=== PATIENT | female | born 1960 | race African-American/Black ===

== ENCOUNTER 2022-06-15 13:25 | Emergency (ER) | payer OTHER ==
[~2022-06-15] VITALS: Ht 157.5 cm; Wt 90.9 kg
[~2022-06-15 13:25] MED LIST: AMLO-258 PO; HYDR-4723 PO; HYDR-4870 PO
[2022-06-15 13:33] VITALS: BP 139/82
[2022-06-15] MEDS ORDERED: IBUPROFEN 600 MG TABLET PO ONE (14:30)
[2022-06-15] MEDS ORDERED: ACETAMINOPHEN/CODEINE 300-30 MG TABLET PO ONE (14:30)
[2022-06-15] MEDS ORDERED: IBUP-1554 PO (14:36)
[2022-06-15] MEDS ORDERED: ACET-2080 PO (14:36)
== END 2022-06-15 15:02 | disposition home or self-care (01) ==
LOC: EMS 13:36
DX: T21.22XA Burn of second degree of abdominal wall, initial encounter (principal); T22.212A Burn of second degree of left forearm, initial encounter; T31.0 Burns involving less than 10% of body surface; I10 Essential (primary) hypertension; Z90.710 Acquired absence of both cervix and uterus; Z98.890 Other specified postprocedural states; Z88.0 Allergy status to penicillin
CPT/HCPCS: 99283

== ENCOUNTER 2022-12-31 10:49 | Emergency (ER) | payer MEDICARE, OTHER ==
[~2022-12-31] VITALS: Ht 157.5 cm; Wt 103.0 kg
[~2022-12-31 10:49] MED LIST changes: +ACET-2080 PO; -HYDR-4870 PO; +HYDR25TA2 PO; +IBUP-1554 PO
[2022-12-31 10:54] VITALS: TEMP 98.3
[2022-12-31 11:52] VITALS: BP 116/70; PULSE 100; RESP 16
[2022-12-31] MEDS ORDERED: METH-812 PO (12:44)
[2022-12-31] MEDS ORDERED: GABA800T9 PO (12:44)
[2022-12-31] MEDS ORDERED: OXYC-618 PO (12:44)
[2022-12-31] MEDS ORDERED: MELO-108 PO (12:44)
[2022-12-31] MEDS ORDERED: NALO4SPR NASAL (12:44)
[2022-12-31] MEDS ORDERED: KETOROLAC TROMETHAMINE 60 MG/2 ML VIAL IM ONE (12:45)
[2022-12-31] MEDS ORDERED: IBUP-1492 PO ×2 (13:42→14:07)
== END 2022-12-31 14:11 | disposition home or self-care (01) ==
LOC: EMS 10:54
DX: M25.561 Pain in right knee (principal); I10 Essential (primary) hypertension; Z90.710 Acquired absence of both cervix and uterus; Z98.890 Other specified postprocedural states
CPT/HCPCS: 99283; 73562; 96372; J1885

== ENCOUNTER 2023-06-23 13:31 | Emergency (ER) | payer MEDICARE, OTHER ==
[~2023-06-23] VITALS: Ht 157.5 cm; Wt 90.9 kg
[~2023-06-23 13:31] MED LIST changes: -ACET-2080 PO; +GABA800T9 PO; -HYDR-4723 PO; +IBUP-1492 PO; -IBUP-1554 PO; +MELO-108 PO; +METH-812 PO; +NALO4SPR NASAL; +OXYC-618 PO
[2023-06-23 13:34] VITALS: BP 136/78; PULSE 102; RESP 16; TEMP 98.4
== END 2023-06-23 13:50 | disposition left against medical advice (07) ==
LOC: EMS 13:32
DX: I10 Essential (primary) hypertension (principal); M25.512 Pain in left shoulder; Z53.21 Procedure and treatment not carried out due to patient leaving prior to being seen by health care provider

== ENCOUNTER 2023-09-25 16:36 | Emergency (ER) | payer MEDICARE, OTHER ==
[~2023-09-25] VITALS: Ht 157.5 cm; Wt 90.9 kg
[2023-09-25 16:41] VITALS: TEMP 98.8
[2023-09-25 17:12] LABS: COVID AG,FIA SOURCE NASAL SWAB
[2023-09-25 17:41] LABS: RAPID GROUP A STREP NEGATIVE (NEGATIVE)
[2023-09-25 17:44] LABS: SARS-COV2 (COVID) ANTIGEN,FIA Negative (Negative)
[2023-09-25 17:46] LABS: INFLUENZA TYPE A NEGATIVE FOR TYPE A (NEGATIVE); INFLUENZA TYPE B NEGATIVE FOR TYPE B (NEGATIVE)
[2023-09-25 18:16] LABS: APPEARANCE,URINE HAZY (CLEAR); BILIRUBIN,URINE NEGATIVE (NEGATIVE); COLOR,URINE YELLOW (YELLOW); GLUCOSE, URINE (UA) NEGATIVE (NEGATIVE); KETONES,URINE TRACE mg/dL (NEGATIVE); LEUKOCYTE ESTERASE ,URINE NEGATIVE (NEGATIVE); NITRATE,URINE NEGATIVE (NEGATIVE); OCCULT BLOOD,URINE TRACE (NEGATIVE); PROTEIN,URINE TRACE mg/dL (NEGATIVE); SPECIFIC GRAVITIY, URINE 1.022 (1.003-1.030); UROBILINOGEN,URINE <=1.0 mg/dL (<=1.0)
[2023-09-25 18:26] LABS: BACTERIA,URINE Few /HPF (None Seen); RBC,URINE 0-2 /HPF (0-2); SQUAMOUS EPITHELIAL CELL,UR Moderate /LPF (None Seen); WBC,URINE None Seen /HPF (0-5)
[2023-09-25 18:31] LABS: BASOPHILS % (AUTO) 0.5 % (0.0-2.0); EOSINOPHILS % (AUTO) 0.5 % (1.0-6.0); HEMATOCRIT 41.4 % (36-46); HEMOGLOBIN 13.7 g/dL (12.0-16.0); LYMPHOCYTES # (AUTO) 1.6 K/uL (1.0-4.8); LYMPHOCYTES % (AUTO) 30.4 % (22.0-44.0); MEAN CORPUSCULAR HEMOGLOBIN 33.5 pg (26.0-34.0); MEAN CORPUSCULAR VOLUME 101 fL (80-100); MONOCYTES # (AUTO) 0.5 K/uL (0.1-1.0); MONOCYTES % (AUTO) 9.1 % (2.0-9.0); NEUTROPHILS # (AUTO) 3.1 K/uL (1.8-7.7); NEUTROPHILS % (AUTO) 59.5 % (40.0-70.0); PLATELET COUNT (AUTO) 169 K/uL (150-450); RED BLOOD CELL COUNT(AUTO) 4.08 MIL/uL (4.00-5.20); RED CELL DISTRIBUTION WIDTH 14.7 % (11.5-14.5); WHITE BLOOD COUNT (AUTO) 5.1 K/uL (4.5-11.0)
[2023-09-25 18:35] LABS: ANION GAP 16 mmol/L (8-16); CALCIUM, TOTAL 8.7 mg/dL (8.8-10.5); CARBON DIOXIDE 25 mmol/L (22-29); CHLORIDE 103 mmol/L (98-107); CREATININE 0.83 mg/dL (0.60-1.30); GLOMERULAR FILTR. RATE CALC > 60 mL/min (>60); GLUCOSE,RANDOM 107 mg/dL (70-110); POTASSIUM 3.2 mmol/L (3.5-5.1); SODIUM SERUM 144 mmol/L (136-145); UREA NITROGEN, BLOOD 14 mg/dL (7-18)
[2023-09-25 18:40] LABS: ALANINE AMINOTRANSFERASE 49 U/L (12-78); ALBUMIN 3.7 g/dL (3.4-5.0); ALKALINE PHOSPHATASE 88 U/L (46-116); ASPARTATE AMINOTRANSFERASE 72 U/L (15-37); BILIRUBIN,TOTAL 0.6 mg/dL (0.1-1.0); TOTAL PROTEIN, SERUM 8.4 g/dL (6.4-8.2)
[2023-09-25 19:31] VITALS: BP 111/69; PULSE 99; RESP 16
[2023-09-25] MEDS ORDERED: AZIT-167 PO (19:32)
[2023-09-25] MEDS ORDERED: IBUP-1506 PO (19:32)
== END 2023-09-25 19:32 | disposition home or self-care (01) ==
LOC: EMS 16:38
DX: J02.9 Acute pharyngitis, unspecified (principal); I10 Essential (primary) hypertension; Z90.710 Acquired absence of both cervix and uterus; Z98.890 Other specified postprocedural states; Z88.0 Allergy status to penicillin; Z20.822 Contact with and (suspected) exposure to COVID-19
CPT/HCPCS: 80053; 81001; 85025; 87430; 87804; 99283

== ENCOUNTER 2023-12-19 14:23 | Emergency (ER) | payer MEDICARE, OTHER ==
[~2023-12-19] VITALS: Ht 157.5 cm; Wt 100.0 kg
[~2023-12-19 14:23] MED LIST changes: +AZIT-167 PO; +GABA-1554 PO; -GABA800T9 PO; +IBUP-1506 PO
[2023-12-19 14:36] VITALS: BP 116/69; PULSE 84; RESP 18; TEMP 98.7; O2SAT 99
[2023-12-19] MEDS ORDERED: DICL100G60 TP (14:40)
[2023-12-19] MEDS: LIDOCAINE 5% TRANSDERMAL PATCH TD ONE (15:48)
[2023-12-19] MEDS: KETOROLAC TROMETHAMINE 30 MG/ML VIAL IM ONE (15:48)
[2023-12-19] MEDS ORDERED: IBUP-1492 PO (16:05)
[2023-12-19] MEDS ORDERED: CYCL-448 PO (16:05)
== END 2023-12-19 16:31 | disposition home or self-care (01) ==
LOC: EMS 14:23
DX: M54.41 Lumbago with sciatica, right side (principal); G62.9 Polyneuropathy, unspecified; I10 Essential (primary) hypertension; Z90.710 Acquired absence of both cervix and uterus; Z88.0 Allergy status to penicillin; Z98.890 Other specified postprocedural states
CPT/HCPCS: 99283; 96372; J1885

== ENCOUNTER 2024-01-21 18:30 | Inpatient (IN) | payer MEDICARE, OTHER ==
[~2024-01-21] VITALS: Ht 162.6 cm; Wt 100.0 kg
[~2024-01-21 18:30] MED LIST changes: -AZIT-167 PO; +CYCL-448 PO; +DICL100G60 TP; -IBUP-1506 PO; -MELO-108 PO; -METH-812 PO; -NALO4SPR NASAL
[2024-01-21 18:53] LABS: COVID AG,FIA SOURCE NASAL SWAB
[2024-01-21 19:15] LABS: BASOPHILS % (AUTO) 0.4 % (0.0-2.0); EOSINOPHILS % (AUTO) 0.9 % (1.0-6.0); HEMATOCRIT 36.9 % (36-46); HEMOGLOBIN 11.9 g/dL (12.0-16.0); LYMPHOCYTES # (AUTO) 1.6 K/uL (1.0-4.8); LYMPHOCYTES % (AUTO) 24.7 % (22.0-44.0); MEAN CORPUSCULAR HGB CONC 32.3 G/dL (31.0-37.0); MEAN CORPUSCULAR VOLUME 99 fL (80-100); MONOCYTES # (AUTO) 0.5 K/uL (0.1-1.0); MONOCYTES % (AUTO) 8.1 % (2.0-9.0); NEUTROPHILS # (AUTO) 4.2 K/uL (1.8-7.7); NEUTROPHILS % (AUTO) 65.9 % (40.0-70.0); PLATELET COUNT (AUTO) 139 K/uL (150-450); RED BLOOD CELL COUNT(AUTO) 3.72 MIL/uL (4.00-5.20); RED CELL DISTRIBUTION WIDTH 15.4 % (11.5-14.5); WHITE BLOOD COUNT (AUTO) 6.4 K/uL (4.5-11.0)
[2024-01-21 19:21] LABS: SARS-COV2 (COVID) ANTIGEN,FIA Negative (Negative)
[2024-01-21 19:22] LABS: INFLUENZA TYPE A NEGATIVE FOR TYPE A (NEGATIVE); INFLUENZA TYPE B NEGATIVE FOR TYPE B (NEGATIVE)
[2024-01-21 19:33] LABS: TROPONIN I-HIGH SENSITIVITY 19 ng/L (<51)
[2024-01-21 19:35] LABS: B-TYPE NATRIURETIC PEPTIDE 46 pg/mL (0-100)
[2024-01-21 19:36] LABS: ANION GAP 14 mmol/L (8-16); CALCIUM, TOTAL 8.9 mg/dL (8.8-10.5); CARBON DIOXIDE 22 mmol/L (22-29); CHLORIDE 102 mmol/L (98-107); CREATININE 1.08 mg/dL (0.60-1.30); GLOMERULAR FILTR. RATE CALC > 60 mL/min (>60); GLUCOSE,RANDOM 117 mg/dL (70-110); SODIUM SERUM 138 mmol/L (136-145); UREA NITROGEN, BLOOD 33 mg/dL (7-18)
[2024-01-21 20:03] LABS: ALANINE AMINOTRANSFERASE 61 U/L (12-78); ALBUMIN 3.8 g/dL (3.4-5.0); ALKALINE PHOSPHATASE 106 U/L (46-116); ASPARTATE AMINOTRANSFERASE 85 U/L (15-37); BILIRUBIN,TOTAL 0.7 mg/dL (0.1-1.0); CREATINE KINASE, TOTAL ONLY 378 U/L (26-192); TOTAL PROTEIN, SERUM 8.1 g/dL (6.4-8.2)
[2024-01-21] MEDS ORDERED: LATA2.5D14 OU (20:06)
[2024-01-21] MEDS: MORPHINE SULFATE 2 MG/ML SYRINGE IVP ONE (20:07)
[2024-01-21] MEDS: POTASSIUM CHLORIDE 20 MEQ ER TABLET PO ONE (20:07)
[2024-01-21] MEDS ORDERED: POTASSIUM CHL 10 MEQ/WATER 50 ML IV PRN (21:15)
[2024-01-21] MEDS ORDERED: BISACODYL 10 MG RECTAL RECTAL SUPPOSITORY PR PRN (21:15)
[2024-01-21] MEDS ORDERED: ACETAMINOPHEN 325 MG TABLET PO PRN (21:15)
[2024-01-21] MEDS ORDERED: MAGNESIUM HYDROXIDE SUSPENSION 30 ML UDCUP PO PRN (21:15)
[2024-01-21] MEDS ORDERED: ONDANSETRON HCL 4 MG/2 ML VIAL IVP PRN (21:15)
[2024-01-21 21:54] LABS: APPEARANCE,URINE CLEAR (CLEAR); BILIRUBIN,URINE NEGATIVE (NEGATIVE); COLOR,URINE LIGHT YELLOW (YELLOW); GLUCOSE, URINE (UA) NEGATIVE (NEGATIVE); KETONES,URINE NEGATIVE (NEGATIVE); LEUKOCYTE ESTERASE ,URINE NEGATIVE (NEGATIVE); NITRATE,URINE NEGATIVE (NEGATIVE); OCCULT BLOOD,URINE SMALL (NEGATIVE); PH,URINE 5.5 (5.0-8.0); PROTEIN,URINE NEGATIVE (NEGATIVE); SPECIFIC GRAVITIY, URINE 1.014 (1.003-1.030); UROBILINOGEN,URINE <=1.0 mg/dL (<=1.0)
[2024-01-21 22:02] LABS: ALCOHOL, URINE DRUG SCREEN NEGATIVE (NEGATIVE); AMPHET/METH SCREEN,URINE NEGATIVE (NEGATIVE); BARBITURATE SCREEN, URINE NEGATIVE (NEGATIVE); BENZODIAZEPINES SCREEN,URINE NEGATIVE (NEGATIVE); CANNABINOID SCREEN,URINE NEGATIVE (NEGATIVE); COCAINE SCREEN,URINE NEGATIVE (NEGATIVE); METHADONE SCREEN, URINE NEGATIVE (NEGATIVE); OPIATE SCREEN,URINE POSITIVE (NEGATIVE); PHENCYCLIDINE SCREEN,URINE NEGATIVE (NEGATIVE)
[2024-01-21 22:06] LABS: PH,URINE DRUG SCREEN 5.5 (5.0-8.0)
[2024-01-21 22:14] LABS: BACTERIA,URINE Few /HPF (None Seen); SQUAMOUS EPITHELIAL CELL,UR Moderate /LPF (None Seen)
[2024-01-21 23:00] VITALS: BP 117/74; PULSE 108; RESP 18; O2SAT 93
[2024-01-22] MEDS: HEPARIN SODIUM,PORCINE 5,000 UNITS/ML VIAL SQ SCH
[2024-01-22] MEDS: HYDROCODONE/ACETAMINOPHEN 5-325 MG TABLET PO PRN (01:35)
[2024-01-22 04:00] VITALS: BP 134/66; PULSE 97; RESP 18; O2SAT 95
[2024-01-22 07:08] LABS: BASOPHILS % (AUTO) 0.5 % (0.0-2.0); EOSINOPHILS % (AUTO) 1.6 % (1.0-6.0); HEMATOCRIT 33.1 % (36-46); HEMOGLOBIN 11.1 g/dL (12.0-16.0); LYMPHOCYTES # (AUTO) 1.2 K/uL (1.0-4.8); LYMPHOCYTES % (AUTO) 25.1 % (22.0-44.0); MEAN CORPUSCULAR HEMOGLOBIN 33.1 pg (26.0-34.0); MEAN CORPUSCULAR HGB CONC 33.4 G/dL (31.0-37.0); MEAN CORPUSCULAR VOLUME 99 fL (80-100); MONOCYTES # (AUTO) 0.5 K/uL (0.1-1.0); MONOCYTES % (AUTO) 11.1 % (2.0-9.0); NEUTROPHILS % (AUTO) 61.7 % (40.0-70.0); PLATELET COUNT (AUTO) 132 K/uL (150-450); RED BLOOD CELL COUNT(AUTO) 3.34 MIL/uL (4.00-5.20); RED CELL DISTRIBUTION WIDTH 15.4 % (11.5-14.5); WHITE BLOOD COUNT (AUTO) 4.9 K/uL (4.5-11.0)
[2024-01-22 07:09] LABS: ANION GAP 11 mmol/L (8-16); CALCIUM, TOTAL 8.5 mg/dL (8.8-10.5); CARBON DIOXIDE 25 mmol/L (22-29); CHLORIDE 103 mmol/L (98-107); CREATININE 0.92 mg/dL (0.60-1.30); GLOMERULAR FILTR. RATE CALC > 60 mL/min (>60); GLUCOSE,RANDOM 123 mg/dL (70-110); POTASSIUM 3.6 mmol/L (3.5-5.1); SODIUM SERUM 139 mmol/L (136-145); UREA NITROGEN, BLOOD 33 mg/dL (7-18)
[2024-01-22 07:30] VITALS: BP 136/79; PULSE 94; RESP 18; TEMP 98; O2SAT 95
[2024-01-22] MEDS: AmLODIPine BESYLATE 10 MG TABLET PO SCH (08:20)
[2024-01-22] MEDS: HYDROCHLOROTHIAZIDE 25 MG TABLET PO SCH (08:22)
[2024-01-22] MEDS: PANTOPRAZOLE SODIUM 40 MG DR TABLET PO SCH (08:22)
[2024-01-22] MEDS: MORPHINE SULFATE 2 MG/ML SYRINGE IVP PRN (08:22)
[2024-01-22] MEDS: DOCUSATE SODIUM 100 MG CAPSULE PO SCH (08:22)
[2024-01-22 12:03] VITALS: BP 142/88; PULSE 103; RESP 18; TEMP 98; O2SAT 96
[2024-01-22 15:08] VITALS: BP 131/78; PULSE 106; RESP 20; TEMP 98.1; O2SAT 95
[2024-01-22] MEDS: FUROSEMIDE 20 MG/2 ML VIAL IVP SCH (16:15)
[2024-01-22] MEDS: LATANOPROST 0.005% 2.5 ML OPHTHALMIC SOLUTION OU SCH (20:11)
[2024-01-22] MEDS: ZOLPIDEM TARTRATE 5 MG TABLET PO PRN (20:11)
[2024-01-22 20:23] VITALS: BP 144/82; PULSE 106; RESP 20; TEMP 98.7; O2SAT 98
[2024-01-22 23:27] VITALS: BP 142/91; PULSE 108; RESP 20; TEMP 98.7; O2SAT 98
[2024-01-23 05:21] VITALS: BP 133/83; PULSE 104; RESP 20; TEMP 99.3; O2SAT 98
[2024-01-23 06:43] LABS: BASOPHILS % (AUTO) 0.3 % (0.0-2.0); HEMATOCRIT 35.5 % (36-46); HEMOGLOBIN 11.7 g/dL (12.0-16.0); LYMPHOCYTES # (AUTO) 1.1 K/uL (1.0-4.8); MEAN CORPUSCULAR HEMOGLOBIN 32.6 pg (26.0-34.0); MEAN CORPUSCULAR HGB CONC 32.9 G/dL (31.0-37.0); MEAN CORPUSCULAR VOLUME 99 fL (80-100); MONOCYTES # (AUTO) 0.4 K/uL (0.1-1.0); MONOCYTES % (AUTO) 11.1 % (2.0-9.0); NEUTROPHILS # (AUTO) 2.1 K/uL (1.8-7.7); NEUTROPHILS % (AUTO) 58.6 % (40.0-70.0); PLATELET COUNT (AUTO) 131 K/uL (150-450); RED BLOOD CELL COUNT(AUTO) 3.58 MIL/uL (4.00-5.20); RED CELL DISTRIBUTION WIDTH 15.7 % (11.5-14.5); WHITE BLOOD COUNT (AUTO) 3.6 K/uL (4.5-11.0)
[2024-01-23 07:11] LABS: ANION GAP 6 mmol/L (8-16); CALCIUM, TOTAL 8.9 mg/dL (8.8-10.5); CARBON DIOXIDE 30 mmol/L (22-29); CHLORIDE 103 mmol/L (98-107); CREATININE 0.66 mg/dL (0.60-1.30); GLOMERULAR FILTR. RATE CALC > 60 mL/min (>60); GLUCOSE,RANDOM 134 mg/dL (70-110); POTASSIUM 3.2 mmol/L (3.5-5.1); SODIUM SERUM 139 mmol/L (136-145); UREA NITROGEN, BLOOD 16 mg/dL (7-18)
[2024-01-23 07:14] LABS: TROPONIN I-HIGH SENSITIVITY 22 ng/L (<51)
[2024-01-23 07:51] VITALS: BP 120/69; PULSE 90; RESP 18; TEMP 98; O2SAT 97
[2024-01-23] MEDS: POTASSIUM CHLORIDE 20 MEQ ER TABLET PO PRN (08:36)
[2024-01-23] MEDS ORDERED: LOSA-382 PO (10:46)
[2024-01-24] MEDS ORDERED: FUROSEMIDE 20 MG TABLET PO SCH (09:00)
== END 2024-01-23 11:05 | disposition home or self-care (01) | DRG 291 ==
LOC: EMS 18:30 → EDH 21:09 → 5N 22:20
PROVIDERS: ADMIT Internal Medicine; ATTEND Internal Medicine
DX: I11.0 Hypertensive heart disease with heart failure (principal); I50.33 Acute on chronic diastolic (congestive) heart failure; E87.6 Hypokalemia; D64.9 Anemia, unspecified; E66.01 Morbid (severe) obesity due to excess calories; G89.29 Other chronic pain; M54.9 Dorsalgia, unspecified; Z20.822 Contact with and (suspected) exposure to COVID-19; Z68.37 Body mass index [BMI] 37.0-37.9, adult; Z88.0 Allergy status to penicillin; Z90.710 Acquired absence of both cervix and uterus; Z79.899 Other long term (current) drug therapy; T46.1X5A Adverse effect of calcium-channel blockers, initial encounter; Y92.9 Unspecified place or not applicable
CPT/HCPCS: 71045; 80048; 80076; 80307; 81001; 82550; 83880; 84484; 85025; 85379; 87040; 87804; 93005; 93306; 93970; 99285; G0480; J1644; J1940; J2270; 36415-L1; 36415-TC

== ENCOUNTER 2024-03-08 00:03 | Emergency (ER) | payer MEDICARE, OTHER ==
[~2024-03-08] VITALS: Ht 165.1 cm; Wt 97.0 kg
[~2024-03-08 00:03] MED LIST changes: -AMLO-258 PO; -CYCL-448 PO; -DICL100G60 TP; -GABA-1554 PO; -HYDR25TA2 PO; -IBUP-1492 PO; +LATA2.5D14 OU; +LOSA-382 PO; -OXYC-618 PO
[2024-03-08 00:14] VITALS: BP 136/79; PULSE 115; RESP 18; TEMP 98; O2SAT 97
[2024-03-08 01:58] LABS: ANION GAP 11 mmol/L (8-16); CARBON DIOXIDE 24 mmol/L (22-29); CHLORIDE 103 mmol/L (98-107); CREATININE 0.88 mg/dL (0.60-1.30); GLOMERULAR FILTR. RATE CALC > 60 mL/min (>60); GLUCOSE,RANDOM 119 mg/dL (70-110); POTASSIUM 3.5 mmol/L (3.5-5.1); SODIUM SERUM 138 mmol/L (136-145); UREA NITROGEN, BLOOD 23 mg/dL (7-18)
[2024-03-08 02:03] LABS: BASOPHILS % (AUTO) 0.5 % (0.0-2.0); EOSINOPHILS % (AUTO) 1.3 % (1.0-6.0); HEMATOCRIT 42.8 % (36-46); HEMOGLOBIN 14.2 g/dL (12.0-16.0); LYMPHOCYTES # (AUTO) 1.7 K/uL (1.0-4.8); MEAN CORPUSCULAR HEMOGLOBIN 31.5 pg (26.0-34.0); MEAN CORPUSCULAR HGB CONC 33.2 G/dL (31.0-37.0); MEAN CORPUSCULAR VOLUME 95 fL (80-100); MONOCYTES # (AUTO) 0.2 K/uL (0.1-1.0); MONOCYTES % (AUTO) 7.7 % (2.0-9.0); NEUTROPHILS % (AUTO) 33.5 % (40.0-70.0); PLATELET COUNT (AUTO) 199 K/uL (150-450); RED BLOOD CELL COUNT(AUTO) 4.52 MIL/uL (4.00-5.20); RED CELL DISTRIBUTION WIDTH 16.2 % (11.5-14.5)
[2024-03-08 02:04] LABS: ALANINE AMINOTRANSFERASE 113 U/L (12-78); ALBUMIN 3.4 g/dL (3.4-5.0); ALKALINE PHOSPHATASE 134 U/L (46-116); ASPARTATE AMINOTRANSFERASE 240 U/L (15-37); BILIRUBIN,TOTAL 0.7 mg/dL (0.1-1.0); TOTAL PROTEIN, SERUM 8.3 g/dL (6.4-8.2); TROPONIN I-HIGH SENSITIVITY 40 ng/L (<51)
[2024-03-08 02:14] LABS: B-TYPE NATRIURETIC PEPTIDE < 5 pg/mL (0-100)
[2024-03-08] MEDS ORDERED: METH-812 PO (04:22)
[2024-03-08] MEDS: IBUPROFEN 400 MG TABLET PO ONE (04:42)
[2024-03-08] MEDS: METHOCARBAMOL 500 MG TABLET PO ONE (04:42)
== END 2024-03-08 04:58 | disposition home or self-care (01) ==
LOC: EMS 00:03
DX: M25.512 Pain in left shoulder (principal); I11.0 Hypertensive heart disease with heart failure; I25.10 Atherosclerotic heart disease of native coronary artery without angina pectoris; I50.9 Heart failure, unspecified; Z79.899 Other long term (current) drug therapy; Z88.0 Allergy status to penicillin; Z90.710 Acquired absence of both cervix and uterus
CPT/HCPCS: 71045; 80048; 80076; 83880; 84484; 85025; 93005; 99285; 36415-L1; 36415-TC